=== PATIENT | male | born 1965 | race Caucasian/White ===

== ENCOUNTER 2019-03-10 11:10 | Emergency (ER) | payer BC ==
[2019-03-10 11:21] VITALS: BP 109/69
--- NOTE | 2019-03-10 11:59 | UC ---
Upper Extremity HPI - HPI Summary HPI Summary: 53 year old male with h/o peripheral neuropathy b/l LEs presents with c/o right shoulder pain, right elbow pain after breaking up a violent dog fight last night between animals. He states around 11PM a dog broke free and attacked two other dogs, he tried to pull dog off without success repeatedly. Since noted right elbow pain, intermittent numbness, tingling in right hand, fingers 3 -5, right shoulder pain, and neck pain. no trauma. no prior neck/ shoulder injuries/ surgeries. - History of Current Complaint Chief Complaint: UCGeneralIllness Stated Complaint: VITALS Time Seen by Provider: 03/10/19 11:14 Hx Obtained From: Patient ?: No Onset/Duration: Sudden Onset, Lasting Hours Severity Initially: Moderate Severity Currently: Moderate Pain Intensity: 5 Pain Scale Used: 0-10 Numeric Location Of Pain: Is Discrete @ - right shoulder, right elbow Character: Aching Aggravating Factor(s): Movement Alleviating Factor(s): Rest Associated Signs And Symptoms: Positive: Numbness/Tingling - right hand 3-5 fingers. Negative: Redness, Bruising, Fever, Weakness - Allergies/Home Medications Allergies/Adverse Reactions: Allergies Allergy/AdvReac Type Severity Reaction Status Date / Time No Known Allergies Allergy Verified 03/10/19 11:21 Home Medications: Home Medications Gabapentin 1 tab PO DAILY 03/10/19 [History Confirmed 03/10/19] PMH/Surg Hx/FS Hx/Imm Hx Previously Healthy: Yes - Surgical History Surgical History: Unable to Obtain/Confirm - Family History Known Family History: Positive: Non-Contributory - Social History Alcohol Use: Weekly Substance Use Type: None Smoking Status (MU): Never Smoked Tobacco Have You Smoked in the Last Year: No Review of Systems All Other Systems Reviewed And Are Negative: Yes Constitutional: Positive: Negative Musculoskeletal: Positive: Arthralgia, Decreased ROM, Myalgia Neurological: Positive: Numbness - 3-5 fingers Is Patient Immunocompromised?: No Physical Exam Triage Information Reviewed: Yes Appearance: Well-Appearing, No Pain Distress, Well-Nourished Vital Signs: Initial Vital Signs Temp 98 F 03/10/19 11:14 Pulse 68 03/10/19 11:14 Resp 17 03/10/19 11:14 BP 109/69 03/10/19 11:14 Pulse Ox 99 03/10/19 11:14 Vital Signs Reviewed: Yes Eyes: Positive: Conjunctiva Clear Neck: Positive: Supple, No Lymphadenopathy, Tenderness @ - SCM R sided. Negative: Nuchal Rigidity Musculoskeletal: Positive: Other: - RIght shoudler- neg speed, cordova, + infraspinatus/ supraspinatus testing, TTP over psterior/ anterior GH, neg biceps tenderness. Good ROM. 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 pulses intact. TTP over lateral epicondyle, neg viral, neg symptoms with percussion over ulnar nerve. full ROM/ strength of elbow. neg AC joint tenderness, neg clavicle tenderness Cervical- no TTP over spine, paraspinal. TTP over SCM right sided. FUll ROM, neg spurling. Neurological: Positive: Other: - decreased senstaion to light touch fingers 3-5 , full ROM, full strength. Psychological Exam: Normal Psychological: Positive: Normal Response To Family Skin Exam: Normal Skin: Positive: Other - no open wounds, sores, no bruising, swelling noted. Upper Extremity Course/Dx - Course Course Of Treatment: RIght RC injury: - Rest, elevate as much as possible - Valium at bedtime to help with muscle spasms, sleep. may cause drowsiness in AM - Naproxen twice daily x 2-3 days to decrease inflammation - Return or go to ER with consistent hand numbness or weakness. - Follow up with orthopedics if no improvement to shoulder pain within 3-5 days - Differential Dx/Diagnosis Differential Diagnosis/HQI/PQRI: Contusion, Strain, Sprain Provider Diagnosis: Rotator cuff strain Discharge - Sign-Out/Discharge Documenting (check all that apply): Patient Departure All imaging exams completed and their final reports reviewed: No Studies - Discharge Plan Condition: Good Disposition: HOME Prescriptions: diazePAM [Valium] 5 mg PO BEDTIME PRN #5 tablet MDD 1 PRN Reason: muscle spasms Patient Education Materials: Rotator Cuff Injury (ED) Referrals: Talat Vail MD [Primary Care Provider] - Payal Mendoza MD [Medical Doctor] - Additional Instructions: - Rest, elevate as much as possible - Valium at bedtime to help with muscle spasms, sleep. may cause drowsiness in AM - Naproxen twice daily x 2-3 days to decrease inflammation - Return or go to ER with consistent hand numbness or weakness. - Follow up with orthopedics if no improvement to shoulder pain within 3-5 days - Billing Disposition and Condition Condition: GOOD Disposition: Home - Attestation Statements Provider Attestation: Per institutional requirements, I have reviewed the chart, however, I was not consulted specifically or made aware of this patient by the midlevel provider. I did not personally evaluate, interact with , or disposition this patient.
== END 2019-03-10 12:10 | disposition home or self-care (01) ==
LOC: UCEAST 11:10
DX: S46.011A Strain of muscle(s) and tendon(s) of the rotator cuff of right shoulder, initial encounter (principal); X58.XXXA Exposure to other specified factors, initial encounter; Y93.K9 Activity, other involving animal care; Y92.017 Garden or yard in single-family (private) house as the place of occurrence of the external cause
CPT/HCPCS: 99202; G0463